=== PATIENT | male | born 1980 | race Caucasian/White ===

== ENCOUNTER 2021-08-27 18:09 | Emergency (ER) | payer SELFPAY ==
[~2021-08-27] VITALS: Ht 177.8 cm; Wt 60.0 kg
[2021-08-27] MEDS ORDERED: IV NORMAL SALINE 1000ML BAG 1,000 ML IV ONE ×2 (18:30→22:00)
[2021-08-27 18:38] LABS: BASO # 0.2 x10^3/uL (0.0-0.2); BASO % 2 % (0-3); EOS # 0.1 x10^3/uL (0.0-0.7); EOS % 1 % (0-3); HEMATOCRIT 51.8 % (39.0-53.0); HEMOGLOBIN 17.8 g/dL (13.0-17.5); LYMPH % 33 % (24-48); MEAN CORPUSCULAR HEMOGLOBIN 32 pg (25-35); MEAN CORPUSCULAR HGB CONC 34 g/dL (31-37); MEAN CORPUSCULAR VOLUME 92 fL (79-100); MONO # 0.9 x10^3/uL (0.0-1.1); MONO % 10 % (0-9); NEUT # 4.8 x10^3/uL (1.8-7.7); NEUT % 54 % (31-73); PLATELET COUNT 302 x10^3/uL (140-400); RED CELL DISTRIBUTION WIDTH 15.7 % (11.5-14.5); WHITE BLOOD COUNT 8.9 x10^3/uL (4.0-11.0)
[2021-08-27 18:47] LABS: CALCIUM 9.3 mg/dL (8.5-10.1); CREATININE 0.7 mg/dL (0.7-1.3); GFR 126.2; POTASSIUM 3.7 mmol/L (3.5-5.1)
[2021-08-27 18:53] LABS: ALBUMIN 4.1 g/dL (3.4-5.0); TOTAL BILIRUBIN 0.3 mg/dL (0.2-1.0); TOTAL PROTEIN 8.1 g/dL (6.4-8.2)
--- NOTE | 2021-08-27 19:11 | PHYS DOC ---
Past Medical History Past Medical History: No Pertinent History Past Surgical History: Other Additional Past Surgical Histo: LEFT EAR- 5 SURGERIES Smoking Status: Unknown if ever smoked Alcohol Use: Heavy Drug Use: Marijuana General Adult EDM: Chief Complaint: ALCOHOL INTOXICATION HPI: HPI: Patient is a 40 year old male who was brought here by EMS from home for alcohol intoxication. Patient called EMS today, asked him to take him to the hospital for alcohol detox. Patient admitted drinking 2 pints vodka today. Patient said he is an alcoholic per EMS he drinks heavily every day. On the way here He stopped answering questions. Review of Systems: Review of Systems: Not able to evaluate due to patient condition Heart Score: C/O Chest Pain: N/A Risk Factors: Risk Factors: DM, Current or recent (<one month) smoker, HTN, HLP, family history of CAD, obesity. Risk Scores: Score 0 - 3: 2.5% MACE over next 6 weeks - Discharge Home Score 4 - 6: 20.3% MACE over next 6 weeks - Admit for Clinical Observation Score 7 - 10: 72.7% MACE over next 6 weeks - Early Invasive Strategies Current Medications: Current Medications Medications (Trade) Dose Ordered Sig/Nicol Start Time Stop Time Status Last Admin Dose Admin Sodium Chloride 1,000 ml @ 1,000 mls/hr 1X ONCE 08/27/21 18:30 08/27/21 19:29 08/27/21 18:30 1,000 MLS/HR Allergies: Allergies: Allergies Coded Allergies Type Severity Reaction Last Updated Verified No Known Drug Allergies 03/15/14 No Physical Exam: PE: Constitutional: Well developed, well nourished, appears intoxicated HENT: Normocephalic, atraumatic, bilateral external ears normal, oropharynx moist, no oral exudates, nose normal. [] Eyes: PERRLA, EOMI, conjunctiva normal, no discharge. [] Neck: Normal range of motion, no tenderness, supple, no stridor. [] Cardiovascular:Heart rate regular rhythm, no murmur [] Lungs & Thorax: Bilateral breath sounds clear to auscultation [] Abdomen: Bowel sounds normal, soft, no tenderness, no masses, no pulsatile masses. [] Skin: Warm, dry, no erythema, no rash. [] Back: No tenderness, no CVA tenderness. [] Extremities: No tenderness, no cyanosis, no clubbing, ROM intact, no edema. [] Neurologic: Patient is awake alert, moves all extremities, but refused to ask any question. Psychologic: Not able to evaluate due to his condition Current Patient Data: Labs: Laboratory Tests Test 08/27/21 18:15 08/27/21 18:30 08/27/21 22:20 08/27/21 23:00 Glucose (Fingerstick) 91 mg/dL White Blood Count 8.9 x10^3/uL Red Blood Count 5.60 x10^6/uL Hemoglobin 17.8 g/dL Hematocrit 51.8 % Mean Corpuscular Volume 92 fL Mean Corpuscular Hemoglobin 32 pg Mean Corpuscular Hemoglobin Concent 34 g/dL Red Cell Distribution Width 15.7 % Platelet Count 302 x10^3/uL Neutrophils (%) (Auto) 54 % Lymphocytes (%) (Auto) 33 % Monocytes (%) (Auto) 10 % Eosinophils (%) (Auto) 1 % Basophils (%) (Auto) 2 % Neutrophils # (Auto) 4.8 x10^3/uL Lymphocytes # (Auto) 3.0 x10^3/uL Monocytes # (Auto) 0.9 x10^3/uL Eosinophils # (Auto) 0.1 x10^3/uL Basophils # (Auto) 0.2 x10^3/uL Sodium Level 143 mmol/L Potassium Level 3.7 mmol/L Chloride Level 102 mmol/L Carbon Dioxide Level 29 mmol/L Anion Gap 12 Blood Urea Nitrogen 15 mg/dL Creatinine 0.7 mg/dL Estimated GFR (Cockcroft-Gault) 126.2 BUN/Creatinine Ratio 21 Glucose Level 92 mg/dL Calcium Level 9.3 mg/dL Magnesium Level 2.0 mg/dL Total Bilirubin 0.3 mg/dL Aspartate Amino Transf (AST/SGOT) 60 U/L Alanine Aminotransferase (ALT/SGPT) 79 U/L Alkaline Phosphatase 91 U/L Total Protein 8.1 g/dL Albumin 4.1 g/dL Albumin/Globulin Ratio 1.0 Ethyl Alcohol Level 491 mg/dL Urine Collection Type Unknown Urine Color Yellow Urine Clarity Clear Urine pH 6.0 Urine Specific [place] <=1.005 Urine Protein Negative mg/dL Urine Glucose (UA) Negative mg/dL Urine Ketones (Stick) Negative mg/dL Urine Blood Negative Urine Nitrite Negative Urine Bilirubin Negative Urine Urobilinogen Dipstick 0.2 mg/dL Urine Leukocyte Esterase Negative Urine RBC 0 /HPF Urine WBC 0 /HPF Urine Squamous Epithelial Cells Occ /LPF Urine Bacteria 0 /HPF Urine Opiates Screen Neg Urine Methadone Screen Neg Urine Barbiturates Neg Urine Phencyclidine Screen Neg Urine Amphetamine/Methamphetamine Neg Urine Benzodiazepines Screen Neg Urine Cocaine Screen Neg Urine Cannabinoids Screen Neg Urine Ethyl Alcohol Pos SARS-CoV-2 Antigen (Rapid) Negative Current Medications Medications (Trade) Dose Ordered Sig/Nicol Route PRN Reason Start Time Stop Time Status Last Admin Dose Admin Sodium Chloride 1,000 ml @ 1,000 mls/hr 1X ONCE IV 08/27/21 18:30 08/27/21 19:29 DC 08/27/21 18:30 Sodium Chloride 1,000 ml @ 1,000 mls/hr 1X ONCE IV 08/27/21 22:00 08/27/21 22:59 DC 08/27/21 22:09 Lorazepam (Ativan Inj) 2 mg 1X ONCE IVP 08/27/21 23:00 08/27/21 23:01 DC 08/27/21 22:54 Chlordiazepoxide (Librium) 50 mg 1X ONCE PO 08/28/21 00:30 08/28/21 00:31 DC 08/28/21 01:08 Laboratory Tests Test 08/27/21 18:15 08/27/21 18:30 Glucose (Fingerstick) 91 mg/dL (70-99) White Blood Count 8.9 x10^3/uL (4.0-11.0) Red Blood Count 5.60 x10^6/uL (4.30-5.70) Hemoglobin 17.8 g/dL (13.0-17.5) H Hematocrit 51.8 % (39.0-53.0) Mean Corpuscular Volume 92 fL (79-100) Mean Corpuscular Hemoglobin 32 pg (25-35) Mean Corpuscular Hemoglobin Concent 34 g/dL (31-37) Red Cell Distribution Width 15.7 % (11.5-14.5) H Platelet Count 302 x10^3/uL (140-400) Neutrophils (%) (Auto) 54 % (31-73) Lymphocytes (%) (Auto) 33 % (24-48) Monocytes (%) (Auto) 10 % (0-9) H Eosinophils (%) (Auto) 1 % (0-3) Basophils (%) (Auto) 2 % (0-3) Neutrophils # (Auto) 4.8 x10^3/uL (1.8-7.7) Lymphocytes # (Auto) 3.0 x10^3/uL (1.0-4.8) Monocytes # (Auto) 0.9 x10^3/uL (0.0-1.1) Eosinophils # (Auto) 0.1 x10^3/uL (0.0-0.7) Basophils # (Auto) 0.2 x10^3/uL (0.0-0.2) Sodium Level 143 mmol/L (136-145) Potassium Level 3.7 mmol/L (3.5-5.1) Chloride Level 102 mmol/L (98-107) Carbon Dioxide Level 29 mmol/L (21-32) Anion Gap 12 (6-14) Blood Urea Nitrogen 15 mg/dL (8-26) Creatinine 0.7 mg/dL (0.7-1.3) Estimated GFR (Cockcroft-Gault) 126.2 BUN/Creatinine Ratio 21 (6-20) H Glucose Level 92 mg/dL (70-99) Calcium Level 9.3 mg/dL (8.5-10.1) Magnesium Level 2.0 mg/dL (1.8-2.4) Total Bilirubin 0.3 mg/dL (0.2-1.0) Aspartate Amino Transferase (AST) 60 U/L (15-37) H Alanine Aminotransferase (ALT) 79 U/L (16-63) H Alkaline Phosphatase 91 U/L (46-116) Total Protein 8.1 g/dL (6.4-8.2) Albumin 4.1 g/dL (3.4-5.0) Albumin/Globulin Ratio 1.0 (1.0-1.7) Ethyl Alcohol Level 491 mg/dL (0-10) *H Laboratory Tests 08/27/21 18:30 Laboratory Tests 08/27/21 18:30 Vital Signs: Vital Signs Date Time Temp Pulse Resp B/P (MAP) Pulse Ox O2 Delivery O2 Flow Rate FiO2 08/27/21 18:20 97.5 109 16 153/72 (99) 95 Nasal Cannula 2.0 97.5 EKG: EKG: [] Radiology/Procedures: Radiology/Procedures: [] Course & Med Decision Making: Course & Med Decision Making Pertinent Labs and Imaging studies reviewed. (See chart for details) Patient is a 40-year-old male who was brought here by EMS from home due to alcohol intoxication. Patient is an alcoholic, he drinks alcohol heavily every day. Patient alcohol level was 491. Patient was given IV fluid, patient was here for 4 hours and 30 minutes. Patient become more awake alert, he began to talk again. Patient said he has history of alcohol withdrawal seizure, he has been depressed, he wants to get help with his alcohol problem. Patient denies suicidal ideation denies homicidal ideation. PAT team, Rosa came in to talk with patient, tried to find place for detox for him but there is no bed at this time. Patient was given resources and information detox so he can get help. Patient will be discharged home today with a prescription for Librium.. Patient Was Given IV Fluid and IV antibiotic, p.o. Librium in the ER. Patient had much better after he stayed here for 12 hours. Dragon Disclaimer: Dragon Disclaimer: This electronic medical record was generated, in whole or in part, using a voice recognition dictation system. Departure Departure Impression: Primary Impression: Alcohol intoxication Disposition: 01 HOME / SELF CARE / HOMELESS Condition: IMPROVED Referrals: NON,STAFF (PCP) Follow up with [facility] [address] [address] 24-HOUR Crisis Line: [phone] Patient Instructions: Alcohol Intoxication Additional Instructions: Thank you for visiting our Emergency Department. We appreciate you trusting us with your care. If any additional problems come up don't hesitate to return to visit us. Please follow up with your primary care provider so they can plan additional care if needed and know about the problem that you had. If symptoms worsen come back to the Emergency Department. Any concerning symptoms that start such as chest pain, shortness of air, weakness or numbness on one side of the body, running high fevers or any other concerning symptoms return to the ER. Scripts Chlordiazepoxide Hcl (CHLORDIAZEPOXIDE HCL) 25 Mg Capsule 25 MG PO TID PRN for ANXIETY / AGITATION for 7 Days, #21 CAP Prov: MARCIA NATHAN DO 08/28/21 MARCIA NATHAN DO Aug 27, 2021 19:11
[2021-08-27 22:30] LABS: BILIRUBIN,URINE NEGATIVE (NEG); CLARITY,URINE CLEAR; COLOR,URINE YELLOW; NITRITE,URINE NEGATIVE (NEG); PROTEIN,URINE NEGATIVE (NEG-TRACE); UROBILINOGEN,URINE 0.2 mg/dL (0.2 mg/dL)
[2021-08-27 22:36] LABS: BARBITURATES NEG (NEG); BENZODIAZEPINES NEG (NEG); CANNABINOIDS NEG (NEG); COCAINE NEG (NEG); METHADONE NEG (NEG); OPIATES NEG (NEG); PHENCYCLIDINE NEG (NEG)
[2021-08-27 22:37] LABS: AMPHETAMINE/METHAMPHETAMINE NEG (NEG)
[2021-08-27 22:40] LABS: BACTERIA,URINE 0 /HPF (0-FEW); RBC,URINE 0 /HPF (0-2); WBC,URINE 0 /HPF (0-4)
[2021-08-28] MEDS ORDERED: chlordiazePOXIDE HCL 25 MG CAPSULE PO ONE (00:30)
[2021-08-28 05:37] VITALS: BP 112/57
[2021-08-28] MEDS ORDERED: CHLO25CA9 PO (05:58)
== END 2021-08-28 06:13 | disposition home or self-care (01) ==
LOC: ER 18:09
DX: F10.229 Alcohol dependence with intoxication, unspecified (principal); Z20.822 Contact with and (suspected) exposure to COVID-19; Y90.8 Blood alcohol level of 240 mg/100 ml or more
CPT/HCPCS: 36415; 80053; 80307; 81001; 82962; 83735; 85025; 87426; 96361; 96374; 99285; G0480; J2060; J7030; U0003; U0005

== ENCOUNTER 2021-08-28 10:39 | Observation (INO) | payer SELFPAY ==
[~2021-08-28] VITALS: Ht 185.4 cm; Wt 70.5 kg
[~2021-08-28 10:39] MED LIST: CHLO25CA9 PO
[2021-08-28] MEDS ORDERED: IV NORMAL SALINE 1000ML BAG 1,000 ML IV ONE (11:00)
[2021-08-28] MEDS ORDERED: MULTIVIT INFUSN,ADULT 4,VIT K 10 ML, THIAMINE INJ 100 MG, FOLIC ACID INJ 1 MG in IV NOR... IV ONE (11:15)
--- NOTE | 2021-08-28 11:18 | PHYS DOC ---
Past Medical History Past Medical History: No Pertinent History (JULIO RAY DIRECTOR [employer]) Past Surgical History: Other Additional Past Surgical Histo: LEFT EAR- 5 SURGERIES (JULIO RAY DIRECTOR [employer]) Smoking Status: Unknown if ever smoked Alcohol Use: Heavy Drug Use: Marijuana (JULIO RAY DIRECTOR [employer]) General Adult EDM: Chief Complaint: ALCOHOL INTOXICATION HPI: HPI: Patient is a 40 year old male who presents with states that he was here yesterday for his alcoholism and was given Librium prescription and some fluids and was seen by PAT team. He states that he went home and then drank 2 pints of alcohol. He is back today because he states he found a rehab facility off of [address] but he does not know the name of it. He states that he had to go to the emergency room first to be evaluated. Patient is intoxicated. Patient states he has a history of seizure and heart attack with withdrawal. Denies any pain at this time. Denies nausea, vomiting, diarrhea, fever, cough, chest pain, dizziness, headache, tremor, hallucinations, SI, HI, abdominal pain, anxiety. (JULIO RAY DIRECTOR [employer]) Review of Systems: Review of Systems: Constitutional: Denies fever or chills. [] Eyes: Denies change in visual acuity. [] HENT: Denies nasal congestion or sore throat. [] Respiratory: Denies cough or shortness of breath. [] Cardiovascular: Denies chest pain or edema. [] GI: Denies abdominal pain, nausea, vomiting, bloody stools or diarrhea. [] : Denies dysuria. [] Musculoskeletal: Denies back pain or joint pain. [] Integument: Denies rash. [] Neurologic: Denies headache, focal weakness or sensory changes. [] Endocrine: Denies polyuria or polydipsia. [] Lymphatic: Denies swollen glands. [] Psychiatric: Denies depression or anxiety. +Intoxication.[] (JULIO RAY DIRECTOR [employer]) Heart Score: C/O Chest Pain: No (JULIO RAY APRN) Allergies: Allergies: Allergies Coded Allergies Type Severity Reaction Last Updated Verified No Known Drug Allergies 03/15/14 No (JULIO RAY APRN) Physical Exam: PE: Constitutional: Well developed, well nourished, no acute distress, non-toxic appearance. [] HENT: Normocephalic, atraumatic, bilateral external ears normal, oropharynx moist, no oral exudates, nose normal. [] Eyes: PERRLA, EOMI, conjunctiva normal, no discharge. [] Neck: Normal range of motion, no tenderness, supple, no stridor. [] Cardiovascular:Heart rate regular rhythm, no murmur [] Lungs & Thorax: Bilateral breath sounds clear to auscultation [] Abdomen: Bowel sounds normal, soft, no tenderness, no masses, no pulsatile masses. [] Skin: Warm, dry, no erythema, no rash. [] Back: No tenderness, no CVA tenderness. [] Extremities: No tenderness, no cyanosis, no clubbing, ROM intact, no edema. [] Neurologic: Alert and oriented X 3, normal motor function, normal sensory function, no focal deficits noted. [] Psychologic: Affect normal, judgement normal, mood normal. Alcohol intoxication[] (JULIO RAY DIRECTOR [employer]) EKG: EK and read by Dr. Soto is a sinus rhythm but no STEMI (JULIO RAY DIRECTOR [employer]) Radiology/Procedures: Radiology/Procedures: [] (JULIO RAY APRN) Course & Med Decision Making: Course & Med Decision Making Pertinent Labs and Imaging studies reviewed. (See chart for details) See HPI. Patient is alert and oriented. He is calm and cooperative at this time. He is intoxicated. Patient is educated that it will take many hours for his alcohol level to get down to a 3 or less before he can be transferred to a sobering facility. He states his understanding of this. Geovani with PAT team was called and he spoke to Renato SALEH and Geovani states to let him know when the alcohol level was less than 3. Speaks in full clear sentences. Ambulatory with a slightly unsteady gait. Admitted to hospitalist for observation. [] (JULIO RAY APRN) Dragon Disclaimer: Dragon Disclaimer: This electronic medical record was generated, in whole or in part, using a voice recognition dictation system. (JULIO RAY APRN) Departure Departure Impression: Primary Impression: Alcohol intoxication Qualified Codes: F10.920 - Alcohol use, unspecified with intoxication, uncomplicated Disposition: ADMITTED INPATIENT Admitting Physician: MADDIE (JULIO RAY APRN) Condition: STABLE Referrals: NO PCP (PCP) Attending Signature I have participated in the care of this patient and I have reviewed and agree with all pertinent clinical information above including history, exam, and recommendations. (YENNI SOTO DO) JULIO RAY APRN Aug 28, 2021 11:18 YENNI SOTO DO Aug 28, 2021 13:15
[2021-08-28 11:28] LABS: BILIRUBIN,URINE NEGATIVE (NEG); CLARITY,URINE CLEAR; COLOR,URINE YELLOW; NITRITE,URINE NEGATIVE (NEG); PROTEIN,URINE NEGATIVE (NEG-TRACE); UROBILINOGEN,URINE 0.2 mg/dL (0.2 mg/dL)
[2021-08-28 11:30] LABS: BASO % 1 % (0-3); EOS % 0 % (0-3); HEMATOCRIT 43.6 % (39.0-53.0); HEMOGLOBIN 15.2 g/dL (13.0-17.5); LYMPH # 1.4 x10^3/uL (1.0-4.8); LYMPH % 17 % (24-48); MEAN CORPUSCULAR HEMOGLOBIN 32 pg (25-35); MEAN CORPUSCULAR HGB CONC 35 g/dL (31-37); MEAN CORPUSCULAR VOLUME 92 fL (79-100); MONO # 0.7 x10^3/uL (0.0-1.1); MONO % 9 % (0-9); NEUT # 6.1 x10^3/uL (1.8-7.7); NEUT % 73 % (31-73); PLATELET COUNT 219 x10^3/uL (140-400); RED BLOOD COUNT 4.74 x10^6/uL (4.30-5.70); RED CELL DISTRIBUTION WIDTH 15.5 % (11.5-14.5); WHITE BLOOD COUNT 8.4 x10^3/uL (4.0-11.0)
[2021-08-28 11:34] LABS: BACTERIA,URINE 0 /HPF (0-FEW); RBC,URINE 0 /HPF (0-2); WBC,URINE 0 /HPF (0-4)
[2021-08-28 11:35] LABS: AMPHETAMINE/METHAMPHETAMINE NEG (NEG); BARBITURATES NEG (NEG); BENZODIAZEPINES NEG (NEG); CANNABINOIDS NEG (NEG); COCAINE NEG (NEG); METHADONE NEG (NEG); OPIATES NEG (NEG); PHENCYCLIDINE NEG (NEG)
[2021-08-28 11:40] LABS: CALCIUM 8.8 mg/dL (8.5-10.1); CREATININE 0.7 mg/dL (0.7-1.3); GFR 126.2
[2021-08-28 11:46] LABS: ALBUMIN 4.2 g/dL (3.4-5.0); ALBUMIN/GLOBULIN RATIO 1.1 (1.0-1.7); MAGNESIUM 1.7 mg/dL (1.8-2.4); TOTAL BILIRUBIN 0.5 mg/dL (0.2-1.0)
[2021-08-28 11:48] LABS: ACETAMIN < 2 mcg/ml (10-30); ETHANOL 330 mg/dL (0-10); SALIC 4.4 mg/dL (2.8-20.0)
--- NOTE | 2021-08-28 11:56 | EKG ---
[facility] [address] [place] [address] Test Date: 2021-08-28 Test Time: 11:40:15 Pat Name: EMMANUEL BOLTON Department: Room: Gender: M Manager Unix: : 1980 Requested By: JULIO RAY Order Number: [id number] Reading MD: Deep Powell Measurements Intervals [place] Rate: 86 P: IN: QRS: 86 QRSD: 86 T: 29 QT: 346 QTc: 417 Interpretive Statements SINUS RHYTHM T ABNORMALITY IN ANTERIOR LEADS INFEROLATERAL LEADS ABNORMAL ECG RI6.02 No previous ECG available for comparison Electronically Signed On 09-02-2021 10:10:35 [employer] by Deep Powell
[2021-08-28] MEDS ORDERED: MAGNESIUM SULFATE 2GM 50 ML IV ONE (12:00)
[2021-08-28] MEDS ORDERED: ONDANSETRON ODT 4 MG TAB.RAPDIS. PO PRN (12:15)
[2021-08-28] MEDS ORDERED: HALOPERIDOL LACTATE 5 MG/ML VIAL. IVP PRN (12:15)
[2021-08-28] MEDS ORDERED: ACETAMINOPHEN 325 MG TABLET. PO PRN (12:15)
[2021-08-28] MEDS ORDERED: cloNIDine HCL 0.1 MG TABLET PO PRN (12:15)
[2021-08-28] MEDS: diphenhydrAMINE 50 MG/ML VIAL IVP PRN (12:58)
[2021-08-28 13:50] VITALS: BP 127/78
--- NOTE | 2021-08-28 13:55 | HP ---
DATE OF SERVICE: 08/28/2021 ADMIT DATE: 08/28/2021 CHIEF COMPLAINT: Alcohol intoxication. HISTORY OF PRESENT ILLNESS: The patient is a pleasant 40-year-old male who was at our Emergency Room yesterday for alcohol issues. He was given a prescription for some Librium and then went home and drank anyway. He also took the Librium. He states he is depressed and anxious because he is going through a breakup with his girlfriend who is also an alcoholic. He has now found a place, where he can get alcohol rehabilitation, but they want him to be sober before he comes. I discussed the case with ER physician. We are going to admit the patient and observe him overnight and we hope to discharge him to the alcohol treatment center tomorrow or when he quits withdrawing. PAST MEDICAL HISTORY: Alcoholism and 5 ear surgeries. ALLERGIES: None. FAMILY HISTORY: Diabetes and alcoholism. SOCIAL HISTORY: He works in construction. He drinks heavily a couple times a day of vodka. He also smokes marijuana. He has a girlfriend. He has also been . His girlfriend is also an alcoholic. MEDICATIONS: Reviewed, please refer to the MRAD. REVIEW OF SYSTEMS: GENERAL: No history of weight change, weakness or fevers. SKIN: No bruising, hair changes or rashes. EYES: No blurred, double or loss of vision. NOSE AND THROAT: No history of nosebleeds, hoarseness or sore throat. HEART: No history of palpitations, chest pain or shortness of breath on exertion. LUNGS: Denies cough, hemoptysis, wheezing or shortness of breath. GASTROINTESTINAL: Denies changes in appetite, nausea, vomiting, diarrhea or constipation. GENITOURINARY: No history of frequency, urgency, hesitancy or nocturia. NEUROLOGIC: He complains of weakness and shaking. PSYCHIATRIC: He complains of depression and anxiety. ENDOCRINE: No history of heat or cold intolerance, polyuria or polydipsia. EXTREMITIES: Denies muscle weakness, joint pain, pain on walking or stiffness. PHYSICAL EXAMINATION: VITALS: Within normal limits and are stable. GENERAL: No apparent distress. Alert and oriented. HEENT: Normal cephalic atraumatic, external auditory canals are patent. EYES: Extraocular muscles are intact, pupils are equally round and reactive to light and accommodation. MUSCULOSKELETAL: Well developed, well nourished, good range of motion. ENDOCRINE: No thyromegaly was palpated. LYMPHATICS: No cervical chain or axillary nodes were noted. HEMATOPOIETIC: No bruising. NECK: Supple, no JVD, no thyromegaly was noted. LUNGS: Clear to auscultation in all lung anand without rhonchi or wheezing. HEART: RRR, S1, S2 present. Peripheral pulses intact, no obvious murmurs were noted. ABDOMEN: Soft, nontender. Positive bowel sounds no organomegaly, normal bowel sounds. EXTREMITIES: Without any cyanosis, clubbing, or edema. Pedal pulses intact, Homans sign is negative. NEUROLOGIC: Normal speech, normal tone. A and O x 3, moves all extremities, no obvious focal deficits. PSYCHIATRIC: Normal affect, normal mood. Stable. SKIN: No ulcerations or rashes, good skin turgor, no jaundice. VASCULAR: Good capillary refill, neurovascular bundle appears to be intact. ASSESSMENT AND PLAN: Alcohol withdrawal and alcohol intoxication. The patient has been admitted. We will use IV banana bag, benzodiazepines. Alcohol withdrawal protocol, home meds. DVT prophylaxis. Full code. Hope to discharge to the alcohol treatment center tomorrow if he is stable. The psychiatric assessment team has already evaluated him. HOLLY DR: JOEY/ye TID: [id number]
[2021-08-28] MEDS: NICOTINE 21MG PATCH. TD SCH (14:28)
[2021-08-28 15:15] VITALS: BP 119/74
[2021-08-28 19:00] VITALS: BP 126/69
[2021-08-28 22:57] VITALS: BP 121/73
[2021-08-29 02:44] VITALS: BP 132/64
[2021-08-29 07:00] VITALS: BP 124/78
[2021-08-29] MEDS: NICOTINE 21MG PATCH. TD SCH (09:07)
--- NOTE | 2021-08-29 10:39 | PDOC ---
[employer] PROGRESS NOTE Date of Service DOS: DATE: 08/29/21 TIME: 10:37 Chief Complaint Chief Complaint Acute Alcohol Intoxication Alcoholism (substance abuse disorder) History of Present Illness History of Present Illness 08/29: Pt was seen, examined, and their chart was reviewed. Pt feels less shaky and agitated than yesterday and is awaiting probable discharge later today for alcohol rehabilitation. Discussed with RN and SW. Vitals/I&O Vitals/I&O: Vital Signs Date Time Temp Pulse Resp B/P (MAP) Pulse Ox O2 Delivery O2 Flow Rate FiO2 08/29/21 07:00 98.1 77 19 124/78 (93) 97 Room Air 98.1 I & O 08/28/21 08/28/21 08/29/21 15:00 23:00 07:00 Intake Total 1340 ml Balance 1340 ml Physical Exam General: Alert, Oriented X3, Cooperative Heart: Regular rate, No murmurs Lungs: Clear Abdomen: Normal bowel sounds, Soft, No tenderness Extremities: No clubbing, No edema Skin: No rashes, No significant lesion Labs Labs: Laboratory Tests Test 08/28/21 11:15 White Blood Count 8.4 x10^3/uL (4.0-11.0) Red Blood Count 4.74 x10^6/uL (4.30-5.70) Hemoglobin 15.2 g/dL (13.0-17.5) Hematocrit 43.6 % (39.0-53.0) Mean Corpuscular Volume 92 fL (79-100) Mean Corpuscular Hemoglobin 32 pg (25-35) Mean Corpuscular Hemoglobin Concent 35 g/dL (31-37) Red Cell Distribution Width 15.5 % (11.5-14.5) Platelet Count 219 x10^3/uL (140-400) Neutrophils (%) (Auto) 73 % (31-73) Lymphocytes (%) (Auto) 17 % (24-48) Monocytes (%) (Auto) 9 % (0-9) Eosinophils (%) (Auto) 0 % (0-3) Basophils (%) (Auto) 1 % (0-3) Neutrophils # (Auto) 6.1 x10^3/uL (1.8-7.7) Lymphocytes # (Auto) 1.4 x10^3/uL (1.0-4.8) Monocytes # (Auto) 0.7 x10^3/uL (0.0-1.1) Eosinophils # (Auto) 0.0 x10^3/uL (0.0-0.7) Basophils # (Auto) 0.0 x10^3/uL (0.0-0.2) Urine Collection Type Unknown Urine Color Yellow Urine Clarity Clear Urine pH 7.0 (<5.0-8.0) Urine Specific [place] <=1.005 (1.000-1.030) Urine Protein Negative mg/dL (NEG-TRACE) Urine Glucose (UA) Negative mg/dL (NEG) Urine Ketones (Stick) Negative mg/dL (NEG) Urine Blood Negative (NEG) Urine Nitrite Negative (NEG) Urine Bilirubin Negative (NEG) Urine Urobilinogen Dipstick 0.2 mg/dL (0.2 mg/dL) Urine Leukocyte Esterase Negative (NEG) Urine RBC 0 /HPF (0-2) Urine WBC 0 /HPF (0-4) Urine Bacteria 0 /HPF (0-FEW) Sodium Level 143 mmol/L (136-145) Potassium Level 4.0 mmol/L (3.5-5.1) Chloride Level 100 mmol/L (98-107) Carbon Dioxide Level 31 mmol/L (21-32) Anion Gap 12 (6-14) Blood Urea Nitrogen 10 mg/dL (8-26) Creatinine 0.7 mg/dL (0.7-1.3) Estimated GFR (Cockcroft-Gault) 126.2 BUN/Creatinine Ratio 14 (6-20) Glucose Level 87 mg/dL (70-99) Calcium Level 8.8 mg/dL (8.5-10.1) Magnesium Level 1.7 mg/dL (1.8-2.4) Total Bilirubin 0.5 mg/dL (0.2-1.0) Aspartate Amino Transf (AST/SGOT) 107 U/L (15-37) Alanine Aminotransferase (ALT/SGPT) 108 U/L (16-63) Alkaline Phosphatase 77 U/L (46-116) Troponin I High Sensitivity 5 ng/L (4-75) Total Protein 8.0 g/dL (6.4-8.2) Albumin 4.2 g/dL (3.4-5.0) Albumin/Globulin Ratio 1.1 (1.0-1.7) Salicylates Level 4.4 mg/dL (2.8-20.0) Salicylate Last Dose Date Unknown Salicylate Last Dose Time Unknown Urine Opiates Screen Neg (NEG) Urine Methadone Screen Neg (NEG) Acetaminophen Level < 2 mcg/ml (10-30) Acetaminophen Last Dose Date Unknown Acetaminophen Last Dose Time Unknown Urine Barbiturates Neg (NEG) Urine Phencyclidine Screen Neg (NEG) Urine Amphetamine/Methamphetamine Neg (NEG) Urine Benzodiazepines Screen Neg (NEG) Urine Cocaine Screen Neg (NEG) Urine Cannabinoids Screen Neg (NEG) Ethyl Alcohol Level 330 mg/dL (0-10) Urine Ethyl Alcohol Pos (NEG) Review of Systems Review of Systems: ROS Negative Assessment and Plan Assessmemt and Plan Problems Medical Problems: (1) Alcohol intoxication Status: Acute Alcoholism (substance abuse disorder) Plan: - For now, continue alcohol withdrawal protocol - Awaiting probable discharge/transfer to alcohol rehabilitation later today Full Code Comment Review of Relevant I have reviewed the following items douglas (where applicable) has been applied. Medications: Current Medications Medications (Trade) Dose Ordered Sig/Nicol Route PRN Reason Start Time Stop Time Status Last Admin Dose Admin Sodium Chloride 1,000 ml @ 1,000 mls/hr 1X ONCE IV 08/28/21 11:00 08/28/21 11:59 DC 08/28/21 11:00 Multivitamins 10 ml/Thiamine HCl 100 mg/Folic Acid 1 mg/Sodium Chloride 1,011.2 ml @ 1,000.088 mls/hr 1X ONCE IV 08/28/21 11:15 08/28/21 12:26 DC 08/28/21 11:15 Magnesium Sulfate 50 ml @ 25 mls/hr 1X ONCE IV 08/28/21 12:00 08/28/21 13:59 DC 08/28/21 12:01 Lorazepam (Ativan Inj) 2 mg PRN Q1HR PRN IV For CIWA 8-14 08/28/21 12:15 08/29/21 09:05 Diphenhydramine HCl (Benadryl) 25 mg PRN Q15MIN PRN IVP EPS symptoms 2'Haldol admin 08/28/21 12:15 08/28/21 12:58 Nicotine (Nicoderm Cq 21mg) 1 patch DAILY TD 08/28/21 14:15 08/29/21 09:07 Justifications for Admission Other Justification ALAINA RODRIGUEZ III DO Aug 29, 2021 10:39
--- NOTE | 2021-08-29 10:51 | NUR ---
SW following. Discussed with RN, pt from home, room air, regular diet. SOFIA consulted for ETOH use/abuse. Med Assist following for self pay status. AURELIO will continue to follow. Addendum: 08/29/21 at 1456 by JOSE DANIEL CAREY [place] W[place]ATT) met with pt, pt provided with resources, would qualify for inpatient treatment but is not interested in treatment at this time. RN notified. Plan for discharge tomorrow as pt has been receiving Ativan consistently.
[2021-08-29 11:00] VITALS: BP 129/84
--- NOTE | 2021-08-29 11:48 | SNU/HH DC ---
DISCHARGE ORDERS DISCHARGE INFORMATION: FINAL DIAGNOSIS Problems Medical Problems: (1) Alcohol intoxication Status: Acute CONDITION ON DISCHARGE: Stable CODE STATUS: Code Status: Full INTERMEDIATE: SNF STAY <30 DAYS: No HOSPICE: HOSPICE: No HOSPICE EVAL & TREAT: No LTAC: ADMIT TO LTAC: No POST DISCHARGE ORDERS: DIET AFTER DISCHARGE: Regular OTHER ORDERS: Discharge to alcohol rehab facility DISCHARGE MEDICATIONS: Home Meds Active Scripts Chlordiazepoxide Hcl (CHLORDIAZEPOXIDE HCL) 25 Mg Capsule, 25 MG PO TID PRN for ANXIETY / AGITATION for 7 Days, #21 CAP Prov:MARCIA NATHAN DO 08/28/21 ALAINA RODRIGUEZ III DO Aug 29, 2021 11:48
[2021-08-29 15:00] VITALS: BP 119/62
--- NOTE | 2021-08-29 15:40 | NUR ---
Patient is triggering CIWA protocol medication multiple times today. Very anxious, restless, sweating, tremors visualized, and presents with a mild headache during most of the day. Dr Webb notified of the fact patient has been getting Ativan multiple times today due to withdrawal/CIWA protocol. Plan for discharge tomorrow in hopes patients symptoms will start to minimize. Patient refusing inpatient alcohol rehab at this time. Will continue to monitor.
[2021-08-29] MEDS: FOLIC ACID 1 MG TABLET. PO SCH (17:15)
[2021-08-29] MEDS: MULTIVITAMIN with MINERAL TABLET. PO SCH (17:15)
[2021-08-29] MEDS: THIAMINE 100 MG TABLET. PO SCH (17:15)
[2021-08-29 19:00] VITALS: BP 137/86
[2021-08-29 23:34] VITALS: BP 98/52
[2021-08-29] MEDS: diphenhydrAMINE 50 MG/ML VIAL IVP PRN (23:47)
[2021-08-30 03:00] VITALS: BP 113/64
[2021-08-30 07:00] VITALS: BP 99/75
[2021-08-30] MEDS: NICOTINE 21MG PATCH. TD SCH (09:22)
[2021-08-30] MEDS: FOLIC ACID 1 MG TABLET. PO SCH (09:23)
[2021-08-30] MEDS: THIAMINE 100 MG TABLET. PO SCH (09:23)
[2021-08-30] MEDS: MULTIVITAMIN with MINERAL TABLET. PO SCH (09:23)
--- NOTE | 2021-08-30 11:07 | PDOC ---
[facility] [facility] PROGRESS NOTE Date of Service DOS: DATE: 08/30/21 TIME: 11:03 Chief Complaint Chief Complaint Acute Alcohol Intoxication Alcoholism (substance abuse disorder) History of Present Illness History of Present Illness 08/30: Pt was seen, examined, and their chart was reviewed. Pt's BP was a little concerning today as it was 99/75 mmHg, but otherwise the Pt feels the same as yesterday. Pt is unsure whether he wants to go to alcohol rehabilitation or to go home. Discussed with RN and AURELIO. 08/29: Pt was seen, examined, and their chart was reviewed. Pt feels less shaky and agitated than yesterday and is awaiting probable discharge later today for alcohol rehabilitation. Discussed with RN and SW. Vitals/I&O Vitals/I&O: Vital Signs Date Time Temp Pulse Resp B/P (MAP) Pulse Ox O2 Delivery O2 Flow Rate FiO2 08/30/21 08:10 Room Air 08/30/21 07:00 97.9 81 16 99/75 (83) 96 97.9 I & O 08/29/21 08/29/21 08/30/21 15:00 23:00 07:00 Intake Total 500 ml Output Total 500 ml Balance 0 ml Physical Exam General: Alert, Oriented X3, Cooperative, mild distress Heart: Regular rate, No murmurs Lungs: Clear Abdomen: Normal bowel sounds, Soft, No tenderness Extremities: No clubbing, No edema Skin: No rashes, No significant lesion Review of Systems Review of Systems: ROS Negative Assessment and Plan Assessmemt and Plan Problems Medical Problems: (1) Alcohol intoxication Status: Acute Alcoholism (substance abuse disorder) Plan: - For now, continue alcohol withdrawal protocol until discharge Full Code Discharge, disposition pending PAT team recommendations. Comment Review of Relevant I have reviewed the following items douglas (where applicable) has been applied. Medications: Current Medications Medications (Trade) Dose Ordered Sig/Nicol Route PRN Reason Start Time Stop Time Status Last Admin Dose Admin Multivitamins (Thera M Plus) 1 tab DAILY PO 08/29/21 17:00 08/30/21 09:23 Thiamine Mononitrate (Vitamin B-1) 100 mg DAILY PO 08/29/21 17:00 08/30/21 09:23 Folic Acid (Folic Acid) 1 mg DAILY PO 08/29/21 17:00 08/30/21 09:23 Justifications for Admission Other Justification ALAINA RODRIGUEZ III DO Aug 30, 2021 11:07
--- NOTE | 2021-08-30 11:08 | DS ---
DATE OF DISCHARGE: 08/30/2021 ADMISSION DIAGNOSIS: Alcohol withdrawal. DISCHARGE DIAGNOSIS: Resolving alcohol withdrawal. HOSPITAL COURSE: The patient is a pleasant middle-aged male who presented with alcohol withdrawal. He states he is drinking too much because he is going through a bad relationship issues with his girlfriend and his ex-. He drinks 3 pints a day. Initially, when he came to the ER, the plan was to get him to a rehab unit, but they would no take him until he is sober. Yesterday, I saw and examined him. He was doing better at discharge, but apparently it was not arranged yet. Today, I saw and examined again. He is doing well. We plan to discharge to an inpatient rehab if he will agree. If not, he will have to go home. DISPOSITION: Inpatient alcohol rehab. ACTIVITY: As tolerated. DIET: Low sodium. MEDICATIONS: Chlordiazepoxide 25 t.i.d. TOTAL TIME: [address]: Jayshree TID: [id number]
--- NOTE | 2021-08-30 12:12 | NUR ---
SW following. Discussed with RN, pt had apparently changed his mind this morning and did want treatment. [place] (PAT) returned, pt still declining even though had told RN and Dr. Webb he did. Discharge order for home with self care. Pt's friends collecting him.
--- NOTE | 2021-08-30 12:15 | NUR ---
Discharge Note: Patient was discharged home with self care. Patients IV was discontinued without any complications per ORDERLIES TEACHER. Patient was given discharge summary/instructions, follow-ups, and educational material. Patient declined to go to rehab. Patient was also given a list of primary care physicians. Patient did not have any further questions or concerns. Patient ambulated to the main entrance with all personal belongings, accompanied by ML Stokes, where our transportation was waiting for him to take him to his destination.
== END 2021-08-30 12:30 | disposition home or self-care (01) ==
LOC: ER 10:39 → 5 NORTH 12:11 → ER 13:54
PROVIDERS: ADMIT Internal Medicine; ATTEND Internal Medicine
DX: F10.239 Alcohol dependence with withdrawal, unspecified (principal); I25.2 Old myocardial infarction; F32.A Depression, unspecified; F17.210 Nicotine dependence, cigarettes, uncomplicated; F12.90 Cannabis use, unspecified, uncomplicated; Z79.899 Other long term (current) drug therapy; Z98.890 Other specified postprocedural states
CPT/HCPCS: 36415; 80053; 80307; 80329; 81001; 83735; 84484; 85025; 93005; 96365; 96366; 96367; 96375; 96376; 99284; 99406; G0378; G0480; J1200; J2060; J3411; J3475; J3490; J7030; G0379

== ENCOUNTER 2022-03-03 17:51 | Emergency (ER) | payer SELFPAY ==
[~2022-03-03] VITALS: Ht 182.9 cm; Wt 66.9 kg
[2022-03-03 19:25] VITALS: BP 114/77
--- NOTE | 2022-03-03 20:02 | PHYS DOC ---
Past Medical History Past Medical History: No Pertinent History Past Surgical History: No Surgical History Additional Past Surgical Histo: LEFT EAR- 5 SURGERIES Smoking Status: Current Every Day Smoker Alcohol Use: Heavy Drug Use: Marijuana General Adult EDM: Chief Complaint: ALCOHOL INTOXICATION HPI: HPI: Patient is a 41 year old male with a history of alcohol abuse presented to the ED today complaining of alcohol intoxication and requesting to go to detox. Patient states he has had a pint of liquor today. Denies any abdominal pain, n ausea or vomiting. He states he was seen at a different facility a couple minutes ago and they requested lab work and he walked away. Review of Systems: Review of Systems: Constitutional: Denies fever or chills. [] Eyes: Denies change in visual acuity. [] HENT: Denies nasal congestion or sore throat. [] Respiratory: Denies cough or shortness of breath. [] Cardiovascular: Denies chest pain or edema. [] GI: Denies abdominal pain, nausea, vomiting, bloody stools or diarrhea. [] : Denies dysuria. [] Musculoskeletal: Denies back pain or joint pain. [] Integument: Denies rash. [] Neurologic: Denies headache, focal weakness or sensory changes. [] Psychiatric: Reports alcohol intoxication Heart Score: C/O Chest Pain: N/A Risk Factors: Risk Factors: DM, Current or recent (<one month) smoker, HTN, HLP, family history of CAD, obesity. Risk Scores: Score 0 - 3: 2.5% MACE over next 6 weeks - Discharge Home Score 4 - 6: 20.3% MACE over next 6 weeks - Admit for Clinical Observation Score 7 - 10: 72.7% MACE over next 6 weeks - Early Invasive Strategies Current Medications: Current Medications Medications (Trade) Dose Ordered Sig/Nicol Start Time Stop Time Status Last Admin Dose Admin Multivitamins 10 ml/Thiamine HCl 100 mg/Folic Acid 1 mg/Sodium Chloride 1,011.2 ml @ 1,000.088 mls/hr 1X ONCE 03/03/22 20:30 03/03/22 21:30 Allergies: Allergies: Allergies Coded Allergies Type Severity Reaction Last Updated Verified No Known Drug Allergies 03/15/14 No Physical Exam: PE: Constitutional:Unkept and dirty appearing, well developed, well nourished, no acute distress, non-toxic appearance. [] HENT: Normocephalic, atraumatic, bilateral external ears normal, oropharynx moist, no oral exudates, nose normal. [] Eyes: PERRLA, EOMI, conjunctiva normal, no discharge. [] Neck: Normal range of motion, no tenderness, supple, no stridor. [] Cardiovascular:Heart rate regular rhythm, no murmur [] Lungs & Thorax: Bilateral breath sounds clear to auscultation [] Abdomen: Bowel sounds normal, soft, no tenderness, no masses, no pulsatile masses. [] Skin: Warm, dry, no erythema, no rash. [] Back: No tenderness, no CVA tenderness. [] Extremities: No tenderness, no cyanosis, no clubbing, ROM intact, right upper extremity is splinted though the splint appears Neurologic: Alert and oriented X 3, normal motor function, normal sensory function, no focal deficits noted. [] Psychologic: Flat affect, appears drunk Current Patient Data: Vital Signs: Vital Signs Date Time Temp Pulse Resp B/P (MAP) Pulse Ox O2 Delivery O2 Flow Rate FiO2 03/03/22 19:25 98.2 103 18 114/77 (89) 99 Room Air 98.2 EKG: EKG: [] Radiology/Procedures: Radiology/Procedures: [] Course & Med Decision Making: Course & Med Decision Making Pertinent Labs and Imaging studies reviewed. (See chart for details) This is a 41-year-old male patient presented to the ED today to be evaluated for alcohol intoxication. He is requesting to go to detox, informed him we have to do lab work to get him to detox. Patient states he already came from a different facility and they asked for lab work and he walked away. Charlie from the pat team was available to talk to patient. Patient walked away [place] Disclaimer: Beryl Disclaimer: This electronic medical record was generated, in whole or in part, using a voice recognition dictation system. Departure Departure Impression: Primary Impression: Alcohol intoxication Qualified Codes: F10.929 - Alcohol use, unspecified with intoxication, unspecified Disposition: LEFT AGAINST MEDICAL ADVICE Condition: STABLE Referrals: NO PCP (PCP) CHRISTY VARMA APRN March 03, 2022 20:02
[2022-03-03] MEDS ORDERED: MULTIVIT INFUSN,ADULT 4,VIT K 10 ML, THIAMINE INJ 100 MG, FOLIC ACID INJ 1 MG in IV NOR... IV ONE (20:30)
== END 2022-03-03 19:35 | disposition left against medical advice (07) ==
LOC: ER 17:51
DX: F10.129 Alcohol abuse with intoxication, unspecified (principal); Y90.9 Presence of alcohol in blood, level not specified; F17.200 Nicotine dependence, unspecified, uncomplicated
CPT/HCPCS: 99281